=== PATIENT | male | born 1990 | race African-American/Black ===

== ENCOUNTER 2017-06-04 20:11 | Emergency (ER) | payer OTHER ==
--- NOTE | 2017-06-04 21:25 | ED ---
General Adult HPI - General Chief complaint: Headache Stated complaint: Concussion Time Seen by Provider: 06/04/17 20:42 Source: patient, RN notes reviewed Mode of arrival: ambulatory Limitations: no limitations - History of Present Illness Initial comments: Patient 26-year-old male who presents emergency room today with a chief complaint head injury that occurred yesterday. He states that he was getting out of car bumped his head on a rail he states he did not have any loss consciousness. No headache at the time. He states that later proxy 5 hours and having a headache. States he's had a headache off and on since that time. Patient denies any nausea vomiting. He denies any other complaints. He is currently watching TV with headphones in his years laying down in the bed with no signs of distress. He does rate his headache as 7/10. Patient unaware of fever at triage. Patient denies any recent shortness of breath, chest pain, back pain, abdominal pain, nausea or vomiting, numbness or tingling, dysuria or hematuria, constipation or diarrhea, visual changes, or any other complaints. - Related Data Previous Rx's Medication Instructions Recorded Cyclobenzaprine [Flexeril] 1 - 2 tab PO TID #20 tablet 09/02/14 Ibuprofen [Motrin] 800 mg PO Q6HR PRN #30 tab 09/02/14 Allergies Allergy/AdvReac Type Severity Reaction Status Date / Time No Known Allergies Allergy Verified 06/04/17 20:40 Review of Systems ROS Statement: Those systems with pertinent positive or pertinent negative responses have been documented in the HPI. ROS Other: All systems not noted in ROS Statement are negative. Past Medical History Past Medical History: No Reported History History of Any Multi-Drug Resistant Organisms: MRSA Date of last positivie culture/infection: 2012 MDRO Source:: axilla Past Surgical History: Hernia Repair Additional Past Surgical History / Comment(s): nasal, Past Psychological History: No Psychological Hx Reported Smoking Status: Former smoker Past Alcohol Use History: None Reported Past Drug Use History: None Reported General Exam - General Exam Comments Initial Comments: General: The patient is awake and alert, in no distress, and does not appear acutely ill. Eye: Pupils are equal, round and reactive to light, extra-ocular movements are intact. No nystagmus. There is normal conjunctiva bilaterally. No signs of icterus. Ears, nose, mouth and throat: There are moist mucous membranes and no oral lesions. Mild tenderness over the left maxillary sinus. Mild redness in erythema to the posterior pharynx no sign of exudate or uvula midline. Tolerating oral secretions. Neck: The neck is supple, there is no tenderness or JVD. Cardiovascular: There is a regular rate and rhythm. No murmur, rub or gallop is appreciated. Respiratory: Lungs are clear to auscultation, respirations are non-labored, breath sounds are equal. No wheezes, stridor, rales, or rhonchi. Gastrointestinal: Soft, non-distended, non-tender abdomen without masses or organomegaly noted. There is no rebound or guarding present. No CVA tenderness. Bowel sounds are unremarkable. Musculoskeletal: Normal ROM, no tenderness. Strength 5/5. Sensation intact. Pulses equal bilaterally 2+. Neurological: A&O x 3. CN II-XII intact, There are no obvious motor or sensory deficits. Coordination appears grossly intact. Speech is normal. Normal finger nose testing. Normal rapid alternating movements. Strength is 5/5 bilaterally both upper and lower tremors. Normal gait. Skin: Skin is warm and dry and no rashes or lesions are noted. Psychiatric: Cooperative, appropriate mood & affect, normal judgment. Limitations: no limitations Course Vital Signs 06/04/17 20:37 Temperature 100.0 F H Pulse Rate 103 H Respiratory 20 Rate Blood Pressure 137/89 O2 Sat by Pulse 97 Oximetry Medical Decision Making - Medical Decision Making Patient reexamined at this time shows no signs of distress. He continues to watch that he was on his phone. No signs of distress at this time. Patient does have sore throat history test was negative. Was discussed with patient does feel that his headache is mainly related to an upper respiratory symptoms at this time. His head injury was low impact injury. Options of CT were discussed with the patient risks versus benefits were discussed at this time is comfortable being discharged. Advised patient to return if symptoms increase worsen or for any other concerns. - Lab Data Lab Results 06/04/17 Range/Units 20:54 Group A Strep Rapid Negative (Negative) Disposition Clinical Impression: Headache, Acute pharyngitis, Head injury Disposition: HOME SELF-CARE Condition: Good Instructions: Pharyngitis (ED) Additional Instructions: Please use medication as discussed. Please follow-up with family doctor in the next 2 days of symptoms have not improved. Please return to emergency room if the symptoms increase or worsen or for any other concerns. Referrals: Bautista Heard MD [Primary Care Provider] - 1-2 days Time of Disposition: 21:51
[2017-06-04 22:00] VITALS: BP 136/83; PULSE 107; RESP 18; TEMP 97.1
== END 2017-06-04 22:01 | disposition home or self-care (01) ==
LOC: EC 20:11
DX: S09.90XA Unspecified injury of head, initial encounter (principal); J02.9 Acute pharyngitis, unspecified; Z86.14 Personal history of Methicillin resistant Staphylococcus aureus infection; Z87.891 Personal history of nicotine dependence; W22.8XXA Striking against or struck by other objects, initial encounter; Z92.89 Personal history of other medical treatment
CPT/HCPCS: 87081; 87430; 99284

== ENCOUNTER 2017-10-09 23:10 | Emergency (ER) | payer OTHER ==
[2017-10-09 23:20] VITALS: RESP 18
--- NOTE | 2017-10-10 01:11 | ED ---
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 Patient states this started approximately 2 days ago after he was on vacation in [place]. Patient states that he was out in the sun. He denies any exposure to new lotions, creams, medications, foods, clothing, or other new substances. Patient states that the rash does become itchy in the mornings and at night however is fine throughout the day. He denies any blistering, drainage from the lesions, or other areas of rash. Denies any fevers or chills with this. States he is fully immunized. Denies any history of similar symptoms. Patient denies any recent shortness breath, throat swelling, chest pain, abdominal pain, nausea, vomiting, diarrhea, constipation, back pain, numbness, tingling, dizziness, weakness, hematuria, dysuria, urinary urgency, urinary frequency, headache, visual changes, or any other complaints. - Related Data Previous Rx's Medication Instructions Recorded Cyclobenzaprine [Flexeril] 1 - 2 tab PO TID #20 tablet 09/02/14 Ibuprofen [Motrin] 800 mg PO Q6HR PRN #30 tab 09/02/14 Lanolin,Anhydrous [Lanolin Hydrous] 28 gm TP BID #1 oint...g. 10/10/17 Allergies Allergy/AdvReac Type Severity Reaction Status Date / Time No Known Allergies Allergy Verified 10/09/17 23:19 Review of Systems ROS Statement: Those systems with pertinent positive or pertinent negative responses have been documented in the HPI. ROS Other: All systems not noted in ROS Statement are negative. Past Medical History Past Medical History: No Reported History History of Any Multi-Drug Resistant Organisms: MRSA Date of last positivie culture/infection: 2012 MDRO Source:: axilla Past Surgical History: Hernia Repair Additional Past Surgical History / Comment(s): nasal,, Past Psychological History: No Psychological Hx Reported Smoking Status: Never smoker Past Alcohol Use History: Occasional Past Drug Use History: None Reported General Exam Limitations: no limitations General appearance: alert, in no apparent distress, other (This is a well- developed, well-nourished adult male patient in no acute distress. Vital signs upon presentation are temperature 98.6F, pulse 76, respirations 18, blood pressure 173/124, pulse ox 100% on room air.) Eye exam: Present: normal appearance, PERRL, EOMI. Absent: scleral icterus, conjunctival injection, periorbital swelling ENT exam: Present: normal exam, normal oropharynx, mucous membranes moist Respiratory exam: Present: normal lung sounds bilaterally. Absent: respiratory distress, wheezes, rales, rhonchi, stridor Cardiovascular Exam: Present: regular rate, normal rhythm, normal heart sounds. Absent: systolic murmur, diastolic murmur, rubs, gallop, clicks Extremities exam: Present: full ROM, normal capillary refill, other (Patient has a papular rash noted to the dorsal surfaces of his bilateral forearms. These are non-petechial and nonvesicular. There is no surrounding erythema or swelling. No evidence of secondary infection.). Absent: normal inspection, tenderness, pedal edema, joint swelling, calf tenderness Neurological exam: Present: alert, oriented X3, CN II-XII intact Psychiatric exam: Present: normal affect, normal mood Skin exam: Present: warm, dry, intact, normal color Course Vital Signs 10/09/17 10/10/17 23:15 00:18 Temperature 98.6 F Pulse Rate 76 89 Respiratory 18 18 Rate Blood Pressure 173/124 172/84 O2 Sat by Pulse 100 100 Oximetry Medical Decision Making - Medical Decision Making 27 year-old male patient presented to the emergency department today for evaluation of rash to the dorsal surfaces of his bilateral forearms. Lesions are papular, non-petechial, not vesicular. There are no intraoral lesions. States they are itchy only in the mornings and at night. There are no lesions on his hands, between his fingers, or in his antecubital fossa. Rash seems to be on the sun exposed areas only. I did discuss this could be a heat rash or reaction to the sun. He is instructed to follow-up with his primary care physician for recheck in 1-2 days. He is instructed to wash with antibacterial soap and keep the area clean and dry. He is instructed to avoid itching. He' ll be given up her prescription for lanolin cream. Return parameters discussed in detail. He verbalizes understanding and agrees with this plan. Disposition Clinical Impression: Heat rash Disposition: HOME SELF-CARE Condition: Good Instructions: Acute Rash (ED) Additional Instructions: Keep skin clean and dry. Wash with antibacterial soap such as Dial until lesions disappear. Avoid scratching the areas. Follow-up with your primary care physician for recheck in 1-2 days. Return here immediately for any new, worsening, or concerning symptoms. Prescriptions: Lanolin,Anhydrous [Lanolin Hydrous] 28 gm TP BID #1 oint...g. Is patient prescribed a controlled substance at d/c from ED?: No Referrals: Bautista Heard MD [Primary Care Provider] - 1-2 days Time of Disposition: 01:11
[2017-10-10 01:32] VITALS: BP 138/62; PULSE 78; TEMP 97.7
== END 2017-10-10 01:33 | disposition home or self-care (01) ==
LOC: EC 23:10
DX: L74.0 Miliaria rubra (principal); Z86.14 Personal history of Methicillin resistant Staphylococcus aureus infection
CPT/HCPCS: 99282

== ENCOUNTER 2022-03-25 19:03 | Emergency (ER) | payer OTHER ==
[2022-03-25 19:26] VITALS: BP 139/87; PULSE 80; RESP 18; TEMP 98.6
--- NOTE | 2022-03-25 21:05 | US ---
EXAMINATION TYPE: US venous doppler duplex LE RT DATE OF EXAM: 03/25/2022 8:42 PM COMPARISON: NONE CLINICAL HISTORY: calf pain. Pain SIDE PERFORMED: Right TECHNIQUE: The lower extremity deep venous system is examined utilizing real time linear array sonog valentin with graded compression, doppler sonography and color-flow sonography. VESSELS IMAGED: Common Femoral Vein Deep Femoral Vein Greater Saphenous Vein * Femoral Vein Popliteal Vein Small Saphenous Vein * Proximal Calf Veins (* superficial vessels) Right Leg: Negative for DVT IMPRESSION: No evidence of deep vein thrombosis in the right leg.
--- NOTE | 2022-03-25 21:49 | ED ---
Extremity Problem HPI - General Chief complaint: Extremity Problem,Nontraumatic Stated complaint: Leg Injury Time Seen by Provider: 03/25/22 19:45 Source: patient Mode of arrival: wheelchair Limitations: no limitations - History of Present Illness Initial comments: Patient is a 31-year-old male who presents to the emergency department with a chief complaint of right calf pain. Patient was diagnosed with right ankle sprain urgent care on Saturday . Patient has been wearing a splint and using crutches. His pain has been improving but he noticed this morning that his pain moved upward from his ankle toward his calf. He also noticed some calf swelling. Patient took off the splint and elevated his leg which is still wrapped in Sebasti[place] wrap. States this has helped swelling. He denies history of DVT and PE. Does admit to being sedentary since injury. Does not use blood thinners. Denies chest pain and shortness of breath. - Related Data Previous Rx's Medication Instructions Recorded Cyclobenzaprine [Flexeril] 1 - 2 tab PO TID #20 tablet 09/02/14 Ibuprofen [Motrin] 800 mg PO Q6HR PRN #30 tab 09/02/14 Lanolin [Lanolin Hydrous] 28 gm TP BID #1 oint...g. 10/10/17 Allergies Allergy/AdvReac Type Severity Reaction Status Date / Time No Known Allergies Allergy Verified 03/25/22 19:26 Review of Systems ROS Statement: Those systems with pertinent positive or pertinent negative responses have been documented in the HPI. ROS Other: All systems not noted in ROS Statement are negative. Past Medical History Past Medical History: No Reported History History of Any Multi-Drug Resistant Organisms: MRSA Date of last positivie culture/infection: 2012 MDRO Source:: axilla Past Surgical History: Hernia Repair Additional Past Surgical History / Comment(s): nasal,, Past Psychological History: No Psychological Hx Reported Smoking Status: Never smoker Past Alcohol Use History: Occasional Past Drug Use History: None Reported General Exam Limitations: no limitations General appearance: alert, in no apparent distress Head exam: Present: atraumatic, normocephalic, normal inspection Respiratory exam: Present: normal lung sounds bilaterally. Absent: respiratory distress, wheezes, rales, rhonchi, stridor Cardiovascular Exam: Present: regular rate, normal rhythm, normal heart sounds. Absent: systolic murmur, diastolic murmur, rubs, gallop, clicks Extremities exam: Present: full ROM (Full strength of right knee and right ankle. Neurovascularly intact), calf tenderness (Right), other (Mild swelling of right calf. No warmth or erythema. ) Neurological exam: Present: alert, oriented X3, CN II-XII intact Psychiatric exam: Present: normal affect, normal mood Skin exam: Present: warm, dry, intact, normal color. Absent: rash Course Vital Signs 03/25/22 19:23 Temperature 98.6 F Pulse Rate 80 Respiratory 18 Rate Blood Pressure 139/87 O2 Sat by Pulse 98 Oximetry Medical Decision Making - Medical Decision Making This is a 31-year-old male presenting with right calf pain after recent ankle sprain. Positive right lower extremity Homans sign. No chest pain or shortness of breath. Ultrasound of the right lower extremity was obtained and interpreted by me which is negative for DVT. Patient has mild pain, no concern for cellulitis. He will be discharged with RICE instructions. He is to continue to use crutches and bear weight as tolerated. Patient does not have an content production specialist. He will be referred to one today for further evaluation and management of his injury. Dr. Prater is my attending. Disposition Clinical Impression: Calf pain, Right ankle sprain Disposition: HOME SELF-CARE Condition: Good Instructions (If sedation given, give patient instructions): P.R.I.C.E. Treatment (ED) Additional Instructions: Please rest, ice, and elevate injury. Follow-up with content production specialist in 1-2 days. Return to the emergency department if you experience new, concerning or worsening symptoms. Is patient prescribed a controlled substance at d/c from ED?: No Referrals: Samuel Hoffmann MD [Primary Care Provider] - 1-2 days Time of Disposition: 21:49
== END 2022-03-25 22:02 | disposition home or self-care (01) ==
LOC: EC 19:03
DX: S93.401A Sprain of unspecified ligament of right ankle, initial encounter (principal); M79.661 Pain in right lower leg; X50.9XXA Other and unspecified overexertion or strenuous movements or postures, initial encounter
CPT/HCPCS: 99283